=== PATIENT | male | born 2000 | race Caucasian/White ===

== ENCOUNTER 2023-10-08 12:34 | Emergency (ER) | payer OTHER ==
[2023-10-08] MEDS ORDERED: LIDOCAINE HCL 1%, 10 MG/ML (20ML VIAL) ONE ×2 (13:09→13:12)
[2023-10-08 13:10] VITALS: TEMP 97.7; BMI 28.7
[2023-10-08] MEDS ORDERED: ONDANSETRON *ODT* 4 MG TABLET ONE (13:10)
[2023-10-08] MEDS: ONDANSETRON *ODT* 4 MG TABLET SL ONE (13:12)
[2023-10-08] MEDS: LIDOCAINE HCL 1%, 10 MG/ML (50 mL VIAL) SQ ONE (13:13)
[2023-10-08 15:11] VITALS: BP 118/73; PULSE 70; RESP 16
== END 2023-10-08 16:08 | disposition home or self-care (01) ==
LOC: FER 12:34
DX: S01.511A Laceration without foreign body of lip, initial encounter (principal); S00.33XA Contusion of nose, initial encounter; R11.2 Nausea with vomiting, unspecified; Y04.0XXA Assault by unarmed brawl or fight, initial encounter; Y99.0 Civilian activity done for income or pay
CPT/HCPCS: 70450-TC; 70486-TC; 99284-25; Q0162